=== PATIENT | female | born 1950 | race Caucasian/White ===

== ENCOUNTER 2017-06-07 06:22 | Emergency (ER) | payer OTHER ==
[~2017-06-07] VITALS: Ht 149.9 cm; Wt 74.3 kg
[~2017-06-07 06:22] MED LIST: ADVIL,NUPRIN,M200 MG PO; ATORVASTATIN CA80 MG PO; CAPTOPRIL-HCTZ1 EAC3 PO; CELEBREX200 MG PO; FERROUS SULFAT325 MG PO; GLIMEPIRIDE1 MG PO; METOPROLOL TAR100 MG PO; OMEPRAZOLE20 M2 PO; OXYCODONE HCL5 MG PO; XARELTO10 MG PO; ZYRTEC10 M2 PO
[2017-06-07 07:20] LABS: HEMATOCRIT 40.1 % (36.0-46.0); MCH 26.5 PG (29.0-34.0); MCHC 32.4 G/DL (30.0-36.0); MCV 81.7 FL (83-99); MEAN PLAT.VOLUME 10.2 uM^3 (9.5-12.4); PLATELET COUNT 194 K/uL (156-360); RBC DIS.WIDTH-CV 14.2 % (11.8-14.6); RBC DIS.WIDTH-SD 41.4 % (39-53); RED BLOOD COUNT 4.91 M/uL (3.80-5.20); WHITE BLOOD COUNT 7.6 K/uL (4.1-10.2)
[2017-06-07 08:01] LABS: TROP-I INTERPRETATION NEGATIVE; TROPONIN-I 0.02 ng/mL (0.0-0.30)
[2017-06-07 08:03] LABS: ANION GAP 9 MEQ/L (2-14); CHLORIDE 101 MEQ/L (99-109); GFR ESTIMATE (CALCULATED) > 59 mL/min/; GLUCOSE 94 mg/dL (70-99); POTASSIUM 4.4 MEQ/L (3.7-5.4); SAMPLE HEMOLYSIS CHECK 2; SAMPLE ICTERIC CHECK 0; SAMPLE LIPEMIA CHECK 0; SODIUM 137 MEQ/L (136-147); UREA NITROGEN (BUN) 13 mg/dL (9-23)
[2017-06-07 10:56] LABS: TROP-I INTERPRETATION NEGATIVE; TROPONIN-I < 0.01 ng/mL (0.0-0.30)
[2017-06-07 11:51] VITALS: BP 136/64
== END 2017-06-07 11:52 | disposition home or self-care (01) ==
LOC: EME 06:22
PROVIDERS: Emergency Medicine
DX: R07.89 Other chest pain (principal); E78.5 Hyperlipidemia, unspecified; I10 Essential (primary) hypertension; E11.9 Type 2 diabetes mellitus without complications; Z96.659 Presence of unspecified artificial knee joint; Z96.649 Presence of unspecified artificial hip joint; Z79.84 Long term (current) use of oral hypoglycemic drugs
CPT/HCPCS: 71010; 80048; 84484; 85027; 93005; 99281; 99285